=== PATIENT | male | born 1950 | race Caucasian/White ===

== ENCOUNTER 2023-07-27 07:50 | Outpatient (AMB) | payer MEDICARE, SELFPAY ==
--- NOTE | 2023-07-27 07:52 | MHC.OFFVIS ---
Intake Vital Signs 07/27/23 07:58 Height 5 ft 4 in Weight 129 lb 2 oz BMI 22.2 BP 132/74 Blood Pressure Location Rt brachial Position Sitting Respiration 16 Pulse 76 Pulse Source Pulse Oximeter Pulse Oximetry (%) 98 Oxygen Delivery Method Room Air Intake Visit Reasons: E-FACILITY OPERATIONS MANAGER: CONF Intake Note: Pt presents to the office for new pt evaluation for memory changes post chemo. Manager Universal Required: No Allergies Penicillins Allergy (Intermediate, Verified 07/27/23 08:02) Rash Medication List - Last Reconciled 07/27/23 by Roxy Vallejo MD amiodarone 200 mg PO DAILY apixaban (Eliquis) 5 mg PO BID aspirin 81 mg PO DAILY lansoprazole (Prevacid SoluTab) 15 mg PO DAILY lidocaine-prilocaine 2.5-2.5 % patches topical metformin 500 mg PO BID metoprolol succinate ER 50 mg PO BID HPI HPI Comments History of Present Illness Details 72y/o male comes for evaluation of cognitive issues. He is accompanied by his son Marcel who helps with and history and patient lives with him About 1 year ago his son noticed he had some short term memory and cognitive issues.He had difficulty doing activities that were easy for him before. 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 He was diagnosed with gastroesophageal junction since then and was treated with radiation and chemo. His cognition worsened significantly when he was hospitalized . He was confused and stressed as he lost his house at that time - he was living with a girlfriend of 20 years who was a drug user and threw him out. His cancer is in remission and his cognition mildly improved. He repeats often , has trouble with names , misplaces things,trouble with computer , forgets medications , missing appointments ,etc. He is also very anxious. He used to be very technical. He sleeps ok most of the time but somedays he ends up playing video games all night. He goes out with his friend 2-3 times a week He does not drive [facility] Medical History (Updated 07/27/23 @ 08:43 by Roxy Vallejo MD) Mild cognitive impairment Obstructive sleep apnea Adenocarcinoma of gastroesophageal junction Radiation esophagitis HTN (hypertension) Diabetes Surgical History H/O skin graft H/O hand surgery History of hip replacement Family History Father No problems noted. Mother No problems noted. Social History Household Members: Children Caregiver staying overnight: Yes Housing: House Alcohol intake: current Comment: Light drinker, none recently Patient Tobacco Use Status: Never used Tobacco Use of substances other than those prescribed or required for medical reasons: No Physical Exam Vital Signs: Last Vital Signs Pulse 76 07/27/23 07:58 Resp 16 07/27/23 07:58 BP 132/74 07/27/23 07:58 Pulse Ox 98 07/27/23 07:58 Oxygen Delivery Method Room Air 07/27/23 07:58 BMI result Body Mass Index 22.2 Const General: cooperative, healthy appearing, comfortable and no acute distress Nutritional Appearance: average body habitus Orientation/consciousness: patient oriented x3 Eyes Pupils: Equal, round and reactive pupils present Neuro General: patient oriented x3, gait normal, tone normal, moves all extremities and no focal motor deficits Cranial nerves: Yes Facial sensation intact/muscles of mastication intact, Yes Equal, round and reactive pupils present, Yes Bilaterally intact EOM present, Yes Nystagmus not present, Yes Normal facial strength present, Yes Midline tongue present, Yes Symmetric palate elevation present and Yes Ability to bilaterally elevate shoulders present Cognition (Neuro): normal cognition Gait exam (Neuro): Normal gait present Motor exam (neuro): 5/5 motor strength present throughout and Normal motor muscle tone present throughout Deep tendon reflexes (DTR's): Right triceps reflex intensity grade: 1+, Left triceps reflex intensity grade: 1+, Rt Biceps (C5, C6): 1+, Left biceps reflex intensity grade: 1+, Right brachioradialis reflex intensity grade: 1+, Left brachioradialis reflex intensity grade: 1+, Right patellar reflex intensity grade: 2+ and Left patellar reflex intensity grade: 2+ Coordination: [id number] test normal Orientation What is the (year) (season) (date) (day) (month)?: year, season, date, day and month Where are we (state) (county) (town or city) (hospital) (floor)?: state, county, town or city and hospital/clinic Registration Name of 3 unrelated objects clearly and slowly, then ask patient to repeat all 3 of them. (1st repeat determines score. Make sure they can repeat all three): object 1, object 2 and object 3 Attention & Calculation (CHOOSE ONE) Spell WORLD backwards (DLROW): 5 letters Recall Ask patient to repeat the 3 items from question #3.: object 1 and object 3 Language Show patient a wristwatch & ask what it is. Repeat for pencil.: watch and pencil Ask the patient to repeat the phrase 'No ifs, ands, or buts' after you.: correct Ask the patient to 'take a piece of paper with their right hand' 'fold paper in half' 'place paper on floor': take paper in right hand and fold paper in half Print the sentence 'CLOSE YOUR EYES' on a piece. If patient actually closes eyes then score.: followed written direction Give patient a blank piece of paper & ask to write a sentence. Score if it contains a noun & verb.: sentence contains subject and verb Ask patient to copy figure of intersecting pentagons exactly. Score if all 10 angles & 2 intersects are included.: all 10 angles present & 2 are intersected Score Score: 27 Assessment & Plan Assessment & Plan (1) Mild cognitive impairment: Comment: mild mood disorder Code(s): G31.84 - Mild cognitive impairment of uncertain or unknown etiology Plan MRI and lab reports from PCP I will trail him on citalopram 10mg qd for depression anxiety - his son with call document examiner about stopping amiodarone. cognitive therapy Orders: Referrals Speech and Hearing Referral G31.84 - Mild cognitive impairment of uncertain or unknown etiology Medications: New citalopram 10 mg PO DAILY 30 tabs 6RF Coding Level of Care Code New Pt Level 4 (24130) Diagnoses Mild cognitive impairment G31.84
[2023-07-27 07:58] VITALS: BP 132/74; PULSE 76; RESP 16; O2SAT 98; BMI 22.2
== END 2023-07-27 08:51 | disposition home or self-care (01) ==
PROVIDERS: Visit Provider Psychiatry & Neurology Neurology
DX: G31.84 Mild cognitive impairment of uncertain or unknown etiology (principal)
CPT/HCPCS: 99204

== ENCOUNTER → 2023-07-27 07:50 | Outpatient (BNVA) | payer MEDICARE, SELFPAY | PROVIDERS: PCP Internal Medicine; Visit Provider Psychiatry & Neurology Neurology | DX: G31.84 Mild cognitive impairment of uncertain or unknown etiology (principal) | CPT/HCPCS: 99202 ==

== ENCOUNTER 2023-09-30 09:17 | Outpatient (RCR) | payer MEDICARE, SELFPAY ==
--- NOTE | 2023-10-29 13:24 | MHC.SP.ADU ---
Referring provider: Dr. Roxy Vallejo Reason for Referral: Cognitive impairment of uncertain or unknown etiology (G31.84) Type of Treatment: 24913 Evaluation Speech Sound Production WITH Language Date of Plan of Treatment: 09/30/23 Onset of Symptoms/Illness: 07/27/23 Date Treatment Started: 09/30/23 Medical Diagnosis: Cognitive impairment of uncertain or unknown etiology (G31.84) Primary Speech Language Diagnosis: R41.841 Cognitive communication disorder History Mr. Leos is a 72 year-old retiree referred for cognitive-communication evaluation by his Neurologist, Dr. Roxy Vallejo, via [facility] in [place], [place]. He is accompanied by his Son, Marcel, who assists with providing more history and detail. He has suffered from Dysphagia in the past due to Esophageal Cancer complication, but is now resolved for the most part. His, and his Son's, chief concern at this time are changes in Mr. Leos's memory and attention. Mr. Leos now lives with his Family after a difficult break-up with a previous partner. He is socially active, exercises sometimes, eats well, and his vision and hearing are not of concern. Marcel does endorse difficulties with his Father staying asleep through the night. Medical History: Other: Mild cognitive impairment Obstructive sleep apnea Adenocarcinoma of the esophageal junction Radiation gastritis HTN Diabetes Recent Hospitalizations: No Respiratory Needs: Room Air Patient Orientation: Alert & Oriented x 4 Social History: Employment Status: Retired Highest level of education obtained: Completed High School/GED Current Living Situation: Lives with Family Past Speech Language Therapy: Unknown Other Therapies Seen in Current Calendar Year: Unknown Swallowing History: Dysphagia Specific: Esophageal Dysphagia Comments: Not addressed at this time. Reported Speech, Language, Cognition difficulties: Understanding Attention Reading Memory Cognition Problem Solving Math Assessment Speech Production: Disorganized Slow Clinical Impression: Impaired Observations: Mr. Leos will at time stop in the middle of a sentence and not be able to recover his thought before continuing. Informal Voice Assessment: Voice Loudness: Normal Voice Nasal Resonance: Normal Hypernasal Voice Oral Resonance: Normal Voice Phonatory-based Quality: Normal Voice Pitch: Normal Voice Other Observations: Clinical Impression: Intact Clinicial Observations: Tests of Speech & Lang Adults: Clinical Impression: Did Not Test Observations: Mr. Leos participated in select subtests of the Repeatable Battery for the Assessement of Neuropsychological Status - Updated. Subests were sufficient to yield a Total Scale Score. [facility] RBANS is considered a screening battery for cognitive function and is repeatable for the purpose of evaluating any changes in function. It is intended for use with adolescents and adults, ages 12 to 89 years. Composite domains assessed in this test are: Immediate Memory, Visuospatial/Constructional, Language, Attention, and Delayed Memory. His scores are tabled below: I.) Immediate Memory Index: 44 Ia.) List Learning: -- Scaled Score: 1 Ib.) Story Memory: -- Scaled Score: 2 The Immediate Memory Index measures, ?initial encoding and learning of complex and simple verbal information. Low scores on this index indicated difficulties with verbal learning.? The score is derived from the participant?s performance on the subtests List Learning and Story Memory. List Learning measures, ?rote verbal memory function.? Participants are asked to repeat back a list of ten words presented to them verbally across four trials. Poor performance on this subtest indicates that, ?the examinee may have difficulty learning new verbal information and that repetition may not be beneficial?, if they do not improve across trials. The Story Memory subtest measures, ?memory for conceptually related verbal information.? Here, a short story is read to them across two trials and they are asked to recall details from the story. ?The test is a measure of verbal memory functioning for information that is related?. As with List Learning, participants that do not demonstrate a positive learning curve across trials could indicate, ?difficulty with learning new verbal learning, and that repetition may not help, or that the examinee may have difficulty retrieving new information from memory. II.) Visuospatial/Constructional Index: 102 IIa.) Figure Copy: -- Scaled Score: 12 IIb.) Line Orientation: -- Percentile Group: 17-25 The Visuospatial/Constructional Index is derived from the Figure Copy and Line Orientation subtests. It measures, ?basic visuospatial perception and the ability to copy a design from a model?. Low performance with this index can indicate, ?difficulties with processing and using visuospatial information?, or, ?visual impairments or attention disorders such as aliza neglect?. The Figure Copy subtest requires the examinee to copy a complex geometrical design from a model that is present throughout the task. ?This requires many cognitive skills including visuospatial reasoning, attention to visual details, motor programming, and to a lesser degree, organization and fine-motor ability?. Points are given for specific details, as well as specific placement in the context of the entire image. The Line Orientation subtest measures, ?the examinee?s ability to correctly identify spatial orientation in two-dimensions?. Poor performance indicates significant visuospatial impairments in acuity and attention. III.) Language Index: 78 IIIa.) Picture Naming: -- Percentile Group: 26-50 IIIb.) Semantic Fluency: -- Scaled Score: 2 The Language Index is, ?a measure of expressive language functioning?. Low scores with this subtest ?would indicate difficulties with language functioning? and, ?while the overall score would still indicate language difficulties, the deficits may be more related to fluency versus naming skills.? The Picture Naming subtest is provided by showing the participant a series of 10 simple line drawing and asking them to name them. The Semantic Fluency subtest is a measure of, ?the examinee?s ability to retrieve and express words using a semantic prompt?. In brief, the examinee is given a category and asked to name as many exemplars as they can in 60 seconds. Low scores, ?indicate significantly impaired ability to retrieve and express verbal information from long-term memory stores?. IV.) Attention Index: 82 Akila.) Digit Span: -- Scaled Score: 4 IVb.) Coding: -- Scaled Score: 10 The Attention Index is a derived from the Digit Span and Coding subtests. It is a measure of, ?simple auditory registration, visual scanning and processing speed. Low scores on this index indicate, ?difficulties with basic attention and processing speed?. Difficulties can vary between the subtests suggesting acute differences between auditory and visual processing and attention. Digit Span is a measure of, ?auditory registration and brief focused attention. Low scores can also indicate difficulties with auditory attention and registration?. In it, the examinee is read a series of single digit numbers and asked to repeat them back in the same order. ?Impairments in auditory acuity can also influence performance on this test?. Coding is a measure of, ?brief, focused, visual attention, visual scanning and processing speed?. In it, the examinee is given a pérez at the top of the page where each symbol is associated with a different number. The examinee is then asked to fill out as many numbers to corresponding symbols as they can in 90 seconds. In incorporates the notion of diligence and sustained attention as well. Difficulties can indicate problems with, ?processing speed and focused visual attention?. V.) Delayed Memory Index: 52 Va.) List Recall: -- Percentile Group: <2 Vb.) List Recognition: -- Percentile Group: <2 Vc.) Story Recall: -- Scaled Score: 0 Vd.) Figure Recall: -- Scaled Score: 3 The Delayed Memory Index is derived by combining the subtest scores for List Recall, Story Recall, and Figure Recall, and cross-referencing them with the List Recognition subtest. Auditory and Visual subtest are combined together. Difference between subtests can be highlighted to provide more specific information about areas of deficit and strength. ?The deficits, may be more related to verbal more than visual memory, or free recall as opposed to recognition memory or general variability in memory functioning.? .) Total Scale Score: 861 (%ile=1) SUMMARY: Mr. Leos demonstrated relative strength in the domain of Visuo-Spatial/Contructional. However his weakness were otherwise across the board in both Language and Attention, but most of all in Immediate and Delayed Memory. He only recalled 4 items on a list presented to him by the 4 trial and recalled 3 details to a story read to him twice. After a delay however, he did not recall any items from the list or the story. Of note, he was able to recognize 7 our of 10 items from the list of word when they were read aloud to him. When asked to recall the picture he broderick, he in fact broderick a picture of a well which is one of the items on the naming task. Also of note, the task which he did best at required good sustained attention, these where the initial copy of a picture and the Coding task. These test score are consistent with his report of difficulty remembering information and losing track of his thoughts. He will benefit from a short course of Cognitive-Communication treatment to target deficits in immediate and short term memory and promote cognitively stimulating task to promote his long-term brain health. Tests of Cognition: RBANS Clinical Impression: Impaired Impressions and Recommendations Prognosis for Improvement: Guarded Comment: Given the severity of Mr. Salgado impairment with recalling new information, it may be difficult for him to learn new things. Treatment will focus primarily on Family education and counseling. Recommendation for Speech Therapy: Outpatient Speech Therapy Frequency/Duration: 1 x week x 12 weeks Date Range for Service Requested: 09/30/23 - 12/30/23 Time to Reassess: 3 months Long-Term Goals: LTG1: Pt will improve attention and processing skills with use of compensatory strategies. Short Term Goals: Goal # : STG1: Pt will demonstrate knowledge of the 5 attention types with >80% accuracy independently. Goal Status: New Goal Goal# : STG2: Pt will complete complex logic puzzles with use of compensatory strategies with >80% accuracy. Goal Status: New Goal Goal # : STG3: Pt will increase short-term recall of 5 item lists with >80% accuracy and minimal assistance. Goal Status: New Goal Goal # : STG4: Pt/Caregiver will complete weekly assigned HEP tasks with >80% accuracy independently. Goal Status: New Goal Recommended Referrals to be Discussed with Primary Care Provider: Dietary Consult Follow-up with referring provider. Patient Education: Completed: Yes Patient/Caregiver Education: Described Results of Evaluation Patient expressed understanding of evaluation Patient agrees with goals and treatment plan Family/Caregivers expressed understanding of results Family/Caregivers expressed agreement with goals and treatment plan Patient requires further education on strategies Family/Caregivers require further education on strategies Rejoiner Clinican/Clinical Fellow: No Supervisory Statement: N/A Speech Language Pathologist: Quinten Falcon M.A., CCC-WIND FIELD MANAGER
== END 2023-12-21 15:33 | disposition still patient (30) ==
LOC: HO.SH 09:17
PROVIDERS: PCP Internal Medicine; Visit Provider Psychiatry & Neurology Neurology
DX: G31.84 Mild cognitive impairment of uncertain or unknown etiology (principal)
CPT/HCPCS: 92523

== ENCOUNTER 2023-11-08 12:52 | Outpatient (AMB) | payer MEDICARE, SELFPAY ==
[2023-11-08 13:11] VITALS: BP 140/80; PULSE 84; RESP 16; O2SAT 97; BMI 24.1
--- NOTE | 2023-11-08 13:11 | A.OFFVIS_ITS ---
Vital Signs 11/08/23 13:11 Height 5 ft 4 in Weight 140 lb 8 oz BMI 24.1 BP 140/80 H Blood Pressure Location Rt brachial Position Sitting Respiration 16 Pulse 84 Pulse Source Pulse Oximeter Pulse Oximetry (%) 97 Oxygen Delivery Method Room Air Intake Visit Reasons: f/u appt see workloads - Confirmed Intake Note: Pt presents for 3 month follow up for mild cognitive impairment. Mercerizer Required: No Allergies Penicillins Allergy (Intermediate, Verified 11/08/23 13:11) Rash Medication List - Last Reconciled 11/08/23 by Roxy Vallejo MD amiodarone 200 mg PO DAILY apixaban (Eliquis) 5 mg PO BID aspirin 81 mg PO DAILY lansoprazole (Prevacid SoluTab) 15 mg PO DAILY lidocaine-prilocaine 2.5-2.5 % patches topical metformin 500 mg PO BID metoprolol succinate ER 50 mg PO BID mirtazapine 7.5 mg PO BEDTIME HPI Comments Details: 72y/o male comes for follow up of cognitive impairment . He was off Eliquis for 3 days - he had an event where he was aggressive physically ( AM ) lasted 1 day . The patient does not recall the incident He was restarted on Eliquis and he was better in 36 hrs. His speech and cognitive evaluation showed poor memory and recall. he sleeps good No hallucinations Mood is better. He lives with his daughter now and he has more social interaction. He was started on mirtazapine 7.5 mg qhs 2 days ago [facility] Medical History (Updated 11/08/23 @ 13:38 by Roxy Vallejo MD) Altered mental status Mild cognitive impairment Obstructive sleep apnea Adenocarcinoma of gastroesophageal junction Radiation esophagitis HTN (hypertension) Diabetes Surgical History H/O skin graft H/O hand surgery History of hip replacement Family History Father No problems noted. Mother No problems noted. Social History Household Members: Children Caregiver staying overnight: Yes Housing: House Alcohol intake: current Comment: Light drinker, none recently Patient Tobacco Use Status: Never used Tobacco Physical Exam Vital Signs: Last Vital Signs Pulse 84 11/08/23 13:11 Resp 16 11/08/23 13:11 BP 140/80 H 11/08/23 13:11 Pulse Ox 97 11/08/23 13:11 Oxygen Delivery Method Room Air 11/08/23 13:11 BMI result Body Mass Index 24.1 Const General: cooperative, healthy appearing, comfortable and no acute distress Nutritional Appearance: average body habitus Orientation/consciousness: patient oriented x3 Eyes Pupils: Equal, round and reactive pupils present Neuro General: patient oriented x3, gait normal, tone normal, moves all extremities and no focal motor deficits Cranial nerves: Yes Facial sensation intact/muscles of mastication intact, Yes Equal, round and reactive pupils present, Yes Bilaterally intact EOM present, Yes Nystagmus not present, Yes Normal facial strength present, Yes Midline tongue present, Yes Symmetric palate elevation present and Yes Ability to bilaterally elevate shoulders present Cognition (Neuro): normal cognition Gait exam (Neuro): Normal gait present Motor exam (neuro): 5/5 motor strength present throughout and Normal motor muscle tone present throughout Coordination: [id number] test normal Assessment & Plan Assessment & Plan (1) Mild cognitive impairment: Comment: Dementia Vascular Code(s): G31.84 - Mild cognitive impairment of uncertain or unknown etiology Category: Medical (2) Altered mental status: Comment: lasting 36 hrs when he was off eliquis ? TGA Code(s): R41.82 - Altered mental status, unspecified Category: Medical Plan MRI and lab reports from PCP I will trial him on memantine Xr 7 mg qd and titrate upto 28 mg F/u cardiology Continue cognitive therapy Medications: New memantine after 30 day course of 14 mg 21 mg PO DAILY 30 ea 0RF memantine 28 mg PO DAILY 30 ea 6RF memantine 7 mg PO DAILY 30 ea 0RF memantine after 30 day course of 7 mg 14 mg PO DAILY 30 ea 0RF Discontinued citalopram Discontinued Reason: Patient no longer taking 10 mg PO DAILY 30 tabs 6RF Coding Level of Care Code Est Pt Level 4 (46322) Diagnoses Mild cognitive impairment G31.84 Altered mental status R41.82
== END 2023-11-08 13:42 | disposition home or self-care (01) ==
PROVIDERS: PCP Internal Medicine; Visit Provider Psychiatry & Neurology Neurology
DX: G31.84 Mild cognitive impairment of uncertain or unknown etiology (principal)
CPT/HCPCS: 99214

== ENCOUNTER → 2023-11-08 12:52 | Outpatient (BNVA) | payer MEDICARE, SELFPAY | PROVIDERS: PCP Internal Medicine; Visit Provider Psychiatry & Neurology Neurology | DX: G31.84 Mild cognitive impairment of uncertain or unknown etiology (principal); R41.82 Altered mental status, unspecified; Z79.899 Other long term (current) drug therapy | CPT/HCPCS: 99212 ==

== ENCOUNTER → 2024-02-14 09:56 | Outpatient (BNV) | payer MEDICARE, SELFPAY | PROVIDERS: PCP Internal Medicine; Referring Provider Internal Medicine; Visit Provider Internal Medicine Medical Oncology | DX: C16.0 Malignant neoplasm of cardia (principal) | CPT/HCPCS: 99204 ==

== ENCOUNTER 2024-03-01 15:10 | Outpatient (AMB) | payer MEDICARE, SELFPAY ==
--- NOTE | 2024-03-01 15:10 | MHC.OFFVIS ---
Vital Signs 03/01/24 15:11 Height 5 ft 4 in Weight 140 lb BMI 24.0 BP 156/92 H Blood Pressure Location Rt brachial Position Sitting Respiration 17 Pulse 94 Pulse Source Pulse Oximeter Pulse Oximetry (%) 96 Oxygen Delivery Method Room Air Intake Visit Reasons: 3 mon follow up Intake Note: Pt presents for a 4 month follow up for altered mental status. Transmission Worker Required: No Allergies Penicillins Allergy (Intermediate, Verified 03/01/24 15:11) Rash Medication List - Last Reconciled 03/01/24 by Roxy Vallejo MD amiodarone 200 mg PO DAILY apixaban (Eliquis) 5 mg PO BID aspirin 81 mg PO DAILY lansoprazole (Prevacid SoluTab) 15 mg PO DAILY magnesium 250 mg PO DAILY metformin 500 mg PO BID metoprolol succinate ER 50 mg PO BID mirtazapine 7.5 mg PO BEDTIME HPI Comments Details: 73y/o male comes for follow up of cognitive impairment . His speech and cognitive evaluation showed poor memory and recall.His memory is worse. He has some episodes of irritability he sleeps good No hallucinations He lives with his daughter now and he has more social interaction.Cognitive therapy helps He was started on mirtazapine 7.5 mg qhs PFSH Medical History Altered mental status Mild cognitive impairment Obstructive sleep apnea Adenocarcinoma of gastroesophageal junction Radiation esophagitis HTN (hypertension) Diabetes Surgical History H/O skin graft H/O hand surgery History of hip replacement Family History Father No problems noted. Mother No problems noted. Social History Household Members: Children Caregiver staying overnight: Yes Housing: House Alcohol intake: current Comment: Light drinker, none recently Patient Tobacco Use Status: Never used Tobacco service: No Current occupational status: retired Physical Exam Vital Signs: Last Vital Signs Pulse 94 03/01/24 15:11 Resp 17 03/01/24 15:11 BP 156/92 H 03/01/24 15:11 Pulse Ox 96 03/01/24 15:11 Oxygen Delivery Method Room Air 03/01/24 15:11 BMI result Body Mass Index 24.0 Const General: cooperative, healthy appearing, comfortable and no acute distress Nutritional Appearance: average body habitus Orientation/consciousness: patient oriented x3 Eyes Pupils: Equal, round and reactive pupils present Neuro General: patient oriented x3, gait normal, tone normal, moves all extremities and no focal motor deficits Cranial nerves: Yes Facial sensation intact/muscles of mastication intact, Yes Equal, round and reactive pupils present, Yes Bilaterally intact EOM present, Yes Nystagmus not present, Yes Normal facial strength present, Yes Midline tongue present, Yes Symmetric palate elevation present and Yes Ability to bilaterally elevate shoulders present Cognition (Neuro): normal cognition Gait exam (Neuro): Normal gait present Motor exam (neuro): 5/5 motor strength present throughout and Normal motor muscle tone present throughout Coordination: [id number] test normal Assessment & Plan Assessment & Plan (1) Mild cognitive impairment: Comment: Dementia Vascular Code(s): G31.84 - Mild cognitive impairment of uncertain or unknown etiology Category: Medical (2) Altered mental status: Comment: lasting 36 hrs when he was off eliquis ? TGA Code(s): R41.82 - Altered mental status, unspecified Category: Medical Plan Memantine was stopped by cardiology F/u cardiology Continue cognitive therapy Coding Level of Care Code Est Pt Level 4 (34404) Diagnoses Mild cognitive impairment G31.84 Altered mental status R41.82
[2024-03-01 15:11] VITALS: BP 156/92; PULSE 94; RESP 17; O2SAT 96; BMI 24.0
== END 2024-03-01 15:31 | disposition home or self-care (01) ==
LOC: HO.HSMS 15:10
PROVIDERS: PCP Internal Medicine; Visit Provider Psychiatry & Neurology Neurology
DX: G31.84 Mild cognitive impairment of uncertain or unknown etiology (principal)
CPT/HCPCS: 99214

== ENCOUNTER → 2024-03-01 15:10 | Outpatient (BNVA) | payer MEDICARE, SELFPAY | PROVIDERS: PCP Internal Medicine; Visit Provider Psychiatry & Neurology Neurology | DX: G31.84 Mild cognitive impairment of uncertain or unknown etiology (principal) | CPT/HCPCS: 99212 ==

== ENCOUNTER 2024-03-24 15:00 | Outpatient (RCR) | payer MEDICARE, SELFPAY ==
--- NOTE | 2024-04-11 15:34 | MHC.SL.SOA ---
Referring Provider: Dr. Roxy Vallejo Reason for Referral: Cognitive impairment of uncertain or unknown etiology (G31.84) Date of Plan of Treatment:09/30/23 Onset of Symptoms/Illness:07/27/23 Date Treatment Started:09/30/23 Medical Diagnosis:Dementia Primary Speech Language Diagnosis: Cognitive communication disorder Number of Authorized Visits Remainin Authorization End Date: 04/07/22 Reason for Visit: Non-billable Event Subjective:This is a non-billable progress note for Moo Leos (: 54). Moo has made slow progress this reporting period, largely due to attendance issues. 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 However he stuggles when task become to abstract or have too may steps and is not able to repair. He has had a couple incident of losing his HEP because he shredded them. Apparently his is a compulsive shredder and the HEP got mixed with his personal items. Objective: Moo was initially evaluated on 09/30/23. He has been seen for 7 treatment visit since 12/30/23 when his treatment started. The following goals have been targeted: STG1: Pt will demonstrate knowledge of the 5 attention types with >80% accuracy independently. STG2: Pt will complete complex logic puzzles with use of compensatory strategies with >80% accuracy. STG3: Pt will increase short-term recall of 5 item lists with >80% accuracy and minimal assistance. STG4: Pt/Caregiver will complete weekly assigned HEP tasks with >80% accuracy independently. Assessment:Moo is delightful 73 year-old male with a strong work ethic and progressive memory loss. His Son, Marcel, is dedicated to bringing him to these appointments and with ensuring carryover of his HEP. He continues to be a good candidate for skilled outpatient Cognitive-Communication Therapy. Treatments will focus on engaging, but not unachievable, mentally stimulating tasks. PAIRER will assist with selection and training of tasks, as well as provide education and counseling on how to apply these skills to activities of daily living. Requesting an additional 8 visits from 04/07/24 - 07/08/24. Plan: Goal # : STG1: Pt will demonstrate knowledge of the 5 attention types with >80% accuracy independently. Status of Goal: Discharge Goal Goal # : STG2: Pt will complete complex logic puzzles with use of compensatory strategies with >80% accuracy. Status of Goal: Goal Continued Goal # : STG3: Pt will increase short-term recall of 5 item lists with >80% accuracy and minimal assistance. Status of Goal: Goal Continued Goal # : STG4: Pt/Caregiver will complete weekly assigned HEP tasks with >80% accuracy independently. Status of Goal: Goal Continued Seen by: Graduate/Clinical Fellow: No Supervisory Statement: N/a Speech Language Pathologist: Quinten Falcon M.A., CCC-PAIRER
--- NOTE | 2024-04-19 11:47 | MHC.SL.SOA ---
Referring Provider: Dr. Roxy Vallejo Reason for Referral: Cognitive impairment of uncertain or unknown etiology (G31.84) Date of Plan of Treatment:09/30/23 Onset of Symptoms/Illness:07/27/23 Date Treatment Started:09/30/23 Medical Diagnosis:Dementia Primary Speech Language Diagnosis:R13.10 Dysphagia Reason for Visit:Non-billable Event Subjective:This is an administrative discharge for Moo Leos (: 12/15/23). Moo was seen for 8 treatment visits starting 12/30/23, ending 04/07/24. He has had difficulty attending recently due to changes in his living situation and health issues. SL[employer] LIFTING ENGINEER spoke with his Son, and is requesting discharge. Moo is getting frustrated when asked to do his HEP, and resents coming to the visits, accusing his Son of taking money from this SL[employer] LIFTING ENGINEER for bringing him. Objective: Moo was initially evaluated on 09/30/23. He has been seen for 8 treatment visit since 12/30/23 when his treatment started. The following goals were targeted: STG1: Pt will demonstrate knowledge of the 5 attention types with >80% accuracy independently. STG2: Pt will complete complex logic puzzles with use of compensatory strategies with >80% accuracy. STG3: Pt will increase short-term recall of 5 item lists with >80% accuracy and minimal assistance. STG4: Pt/Caregiver will complete weekly assigned HEP tasks with >80% accuracy independently. Assessment:Moo does best with tasks that engage his Sustained Attention (Word Searches, Cancellation Tasks, and Arithmetic). He breaks down when provided tasks that challenge his Alternating and Divided Attention. This is shared with his Son, Marcel, who brought him to every visit and is primarily responsible for his carryover at home. Plan: Goal # : STG1: Pt will demonstrate knowledge of the 5 attention types with >80% accuracy independently. Status of Goal: Discharge Goal Goal # : STG2: Pt will complete complex logic puzzles with use of compensatory strategies with >80% accuracy. Status of Goal: Discharge Goal Goal # : STG3: Pt will increase short-term recall of 5 item lists with >80% accuracy and minimal assistance. Status of Goal: Discharge Goal Goal # : STG4: Pt/Caregiver will complete weekly assigned HEP tasks with >80% accuracy independently. Status of Goal: Discharge Goal Seen by: Graduate/Clinical Fellow: No Supervisory Statement: N/a Speech Language Pathologist: Quinten Falcon M.A., [facility]-[employer]ING [employer]INEER
== END 2024-04-19 15:10 | disposition home or self-care (01) ==
LOC: HO.SH 15:00
PROVIDERS: PCP Internal Medicine; Visit Provider Psychiatry & Neurology Neurology
DX: G31.84 Mild cognitive impairment of uncertain or unknown etiology (principal)
CPT/HCPCS: 92526